=== PATIENT | male | born 1975 | race Caucasian/White ===

== ENCOUNTER → 2021-03-20 13:44 | Outpatient (CLI) | payer BC, SELFPAY ==
--- NOTE | ~2021-03-20 | XR_ITS ---
EXAMINATION: XR chest 2V 03/20/2021 14:01 INDICATION: Viral infection PROCEDURE: 2 view chest COMPARISON: 06/16/2004 FINDINGS: The lungs are clear. The cardiomediastinal silhouette is within normal limits. There are no pleural effusions. There is no pneumothorax suspected. IMPRESSION: 1: NO ACUTE CARDIOPULMONARY DISEASE. Reviewed, dictated and finalized at location B.
== END ==
PROVIDERS: PCP Internal Medicine; Visit Provider Internal Medicine
DX: B34.9 Viral infection, unspecified (principal)
CPT/HCPCS: 71046

== ENCOUNTER → 2021-03-21 03:05 | Outpatient (CLI) | payer BC, SELFPAY ==
[2021-03-21 17:42] LABS: SARS-CoV-2 RNA PCR Negative
== END ==
PROVIDERS: Internal Medicine; PCP Internal Medicine; Visit Provider Internal Medicine
DX: B34.9 Viral infection, unspecified (principal); Z20.822 Contact with and (suspected) exposure to COVID-19
CPT/HCPCS: C9803; U0003; U0005

== ENCOUNTER 2021-07-12 00:43 | Day surgery (SDC) | payer BC, SELFPAY ==
[2021-07-01 15:32] VITALS: BMI 34.2
--- NOTE | 2021-07-11 13:00 | WPDANESEPPF ---
Anes - Initial Pre Proc Eval Procedure: Operation Date: 07/12/21 10:00 Proposed Procedures p Screening Colonoscopy - Hector Brown MD Date/Time: 07/11/21 13:00 Surgeon: Hector Brown MD Pre Op Diagnosis: neoplasm screening Patient Data Age: 46 Gender: M Height: 1.75 m Weight: 105 kg Allergies Allergy/AdvReac Type Severity Reaction Status Date / Time No Known Allergies Allergy Verified 07/12/21 09:00 Home Medications Medication Instructions Recorded Confirmed Type No Home Medications 06/04/20 07/12/21 History Patient hx anesthesia problems: none Family hx anesthesia problems: none Results Review: All pre-operative results and documents have been reviewed as part of the pre-operative evaluation. [facility] Social History Social History (Updated 06/26/21 @ 13:43 by Jessica Parker) Smoking packs per day: 1 Smoking cigarettes per day: 20.0 Years smoked: 10 Smoking pack-years: 10.00 Smoking status: Former smoker Tobacco type: cigarettes Second hand tobacco smoke exposure: No Smoking end date: 06/01/03 Alcohol intake: current Drinks per week: 6 Alcohol use details: social Substance use: never Substance use type: does not use Living arrangements: with family Spiritual care concerns: No Anes - Eval Final PreProcedure Day of Procedure 07/11/21 13:00 Patient weight: obese Heart: regular rate and rhythm Lungs: clear to auscultation and normal air movement Airway: Mallampati scale class II Neurological: alert and oriented Last oral intake: >/= 8 hours ASA classification: II Emergent: no Anesthetic plan: proceed Anesthesia type and monitoring: general GIVS and standard monitoring Results Review: All pre-operative results and documents have been reviewed as part of the pre-operative evaluation. Informed Consent: The patient's anesthetic plan and its attendant risks and benefits were discussed with the patient/family/POA. Questions were solicited and answers provided to the satisfaction of the patient/family/POA.
[2021-07-12 09:01] VITALS: BP 146/91; PULSE 77; RESP 16; TEMP 36.7; O2SAT 98; BMI 33.3
[2021-07-12] MEDS: LACTATED RINGERS 1,000 ML 150 ML IV CONT (09:18)
--- NOTE | 2021-07-12 09:41 | PM.HPGS ---
History of Present Illness History of Present Illness Consent: Risks, benefits, and alternatives have been discussed and questions answered. Patient agrees to proceed with procedure. Chief complaint: neoplasm screening Narrative: Marcelo Jackson is a 46 year old male here for first screening colonoscopy Review of Systems Constitutional: Constitutional: Denies headache(s) and Denies weakness Eyes: Eyes: Denies blurry vision ENT: Reports Normal hearing present, Denies headache(s) and Denies neck pain Cardiovascular: Cardiovascular: Denies chest pain and Denies dyspnea Respiratory: Respiratory: Denies dyspnea Gastrointestinal: Gastrointestinal: Reports no additional gastrointestinal complaints Genitourinary: Genitourinary: Denies dysuria Musculoskeletal: Musculoskeletal: Denies neck pain Integumentary/Breasts: Skin/Breast: Denies dry skin Neurologic: Reports Normal hearing present, Denies headache(s) and Denies weakness Psychiatric: Psychiatric: Denies anxiety Endocrine: Endocrine: Denies change in body appearance Hematologic/Lymphatic: Hematologic/Lymphatic: Denies easy bleeding Allergic/Immunologic: Allergic/Immunologic: Denies urticaria [facility] Social History Social History (Updated 06/26/21 @ 13:43 by Jessica Parker) Smoking packs per day: 1 Smoking cigarettes per day: 20.0 Years smoked: 10 Smoking pack-years: 10.00 Smoking status: Former smoker Tobacco type: cigarettes Second hand tobacco smoke exposure: No Smoking end date: 06/01/03 Alcohol intake: current Drinks per week: 6 Alcohol use details: social Substance use: never Substance use type: does not use Living arrangements: with family Spiritual care concerns: No Meds Home Medications and Allergies Home Medications Medication Instructions Recorded Confirmed Type No Home Medications 06/04/20 07/12/21 History Allergies Allergy/AdvReac Type Severity Reaction Status Date / Time No Known Allergies Allergy Verified 07/12/21 09:00 Vital Signs Vital Signs - 24 hr 07/12/21 09:01 Temperature 98.1 F Pulse Rate 77 Respiratory Rate 16 Blood Pressure 146/91 H Pulse Oximetry 98 Exam Const: General: comfortable and no acute distress HENMT: General nose exam: Normal nares present Eyes: General: appearance normal, both eyes and all related structures Neck: Neck: no JVD Resp: Auscultation: clear to auscultation bilaterally Cardio: Rate: regular rate Rhythm: regular rhythm GI: Inspection: non-distended GI Palp: Yes Soft to palpation Skin: General skin exam: normal color Neuro: General: gait normal Speech: normal speech Extrem: General: normal to inspection Psych: Mental Status: mental status grossly normal Assessment and Plan Assessment and plan (1) Encounter for screening colonoscopy: Code(s): Z12.11 - Encounter for screening for malignant neoplasm of colon Status: Acute Assessment and Plan: colonoscopy
[2021-07-12 10:04] VITALS: BP 93/58; PULSE 76; RESP 16; O2SAT 95
[2021-07-12 10:14] VITALS: BP 102/70; PULSE 80; RESP 20; O2SAT 98
[2021-07-12 10:24] VITALS: BP 112/72; PULSE 78; RESP 20; O2SAT 99
== END 2021-07-12 10:30 | disposition home or self-care (01) ==
PROVIDERS: PCP Internal Medicine; Visit Provider Internal Medicine Gastroenterology
PROC: 0DJD8ZZ Inspection of Lower Intestinal Tract, Via Natural or Artificial Opening Endoscopic (ICD-10-PCS; CPT 45378; principal; 2021-07-12 10:00)
DX: Z12.11 Encounter for screening for malignant neoplasm of colon (principal); K64.8 Other hemorrhoids; Z87.891 Personal history of nicotine dependence; E66.9 Obesity, unspecified; Z68.33 Body mass index [BMI] 33.0-33.9, adult
CPT/HCPCS: 45378; J2001; J2704; J7120

== ENCOUNTER 2024-07-18 12:43 | Outpatient (CLI) | payer BC, SELFPAY ==
--- NOTE | ~2024-07-18 | US_ITS ---
US soft tissue chest 07/18/2024 12:58 Indication: Localized swelling. Chest wall mass. Procedure: High-resolution Limited ultrasound of the right lateral chest wall in the area of palpable concern Comparison: No prior studies Findings: In the superficial soft tissues of the right lateral chest wall there is an oval encapsulat ed hypoechoic mass measuring 2.5 x 2.4 x 0.9 cm. There are internal horizontal striations. No interna l vascularity. There is posterior acoustic enhancement. Findings compatible with benign lipoma. Impression: 1: Probable benign lipoma of the right lateral chest wall measuring 2.5 cm. Consider follow-up ultras ound as clinically warranted. Reviewed, dictated and finalized at location B. [employer] Impression: 1: Probable benign lipoma of the right lateral chest wall measuring 2.5 cm. 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
== END 2024-07-18 12:44 | disposition home or self-care (01) ==
LOC: MICIMG 12:45
PROVIDERS: PCP Nurse Practitioner Family; Visit Provider Nurse Practitioner Family
DX: R22.2 Localized swelling, mass and lump, trunk (principal)
CPT/HCPCS: 76604

== ENCOUNTER 2025-02-06 08:33 | Outpatient (CLI) | payer BC, SELFPAY | END 2025-02-06 08:34 | disposition home or self-care (01) | LOC: ANHAUDIO 08:33 | PROVIDERS: PCP Nurse Practitioner Family; Visit Provider Otolaryngology | DX: H93.8X1 Other specified disorders of right ear (principal); H93.13 Tinnitus, bilateral; Z96.22 Myringotomy tube(s) status | CPT/HCPCS: 92567 ==